=== PATIENT | male | born 1935 | race Caucasian/White ===

== ENCOUNTER 2020-09-03 14:35 | Inpatient (IN) ==
[2020-09-03] MEDS ORDERED: *HR* OxyCODONE/APAP 5/325 TABLET PO PRN (16:31)
[2020-09-03] MEDS ORDERED: NON-FORMULARY MEDICATION 1 EACH EACH (Alendronate Sodium [Fosamax] 70 MG) PO SCH (16:45)
[2020-09-03] MEDS ORDERED: NON-FORMULARY MEDICATION 1 EACH EACH (Vit A/Vit C/Vit E/Zinc/Copper [Preservision Areds Ta PO SCH (21:00)
[2020-09-03] MEDS: calcium polycarbophiL 625 MG TABLET PO SCH (21:58)
[2020-09-03] MEDS: Carbidopa/Levodopa 25/100 TABLET PO SCH (22:15)
[2020-09-03] MEDS: Artificial Tears SOLN 15 ML BOTTLE BOTH EYES SCH (22:16)
[2020-09-03] MEDS: Fluticasone Propionate Nasal 50 MCG/SPRAY BOTTLE NS SCH (22:16)
[2020-09-04 08:04] LABS: Basophils # 0.1 K/mcL (0.0-0.2); Basophils % 0.7 %; Eosinophils # 0.5 K/mcL (0.0-0.6); Eosinophils % 3.6 %; Hematocrit 33.2 % (37.5-50.1); Hemoglobin 10.7 g/dL (12.9-16.9); Immature Granulocytes % 1.4 % (0-4); Lymphocytes % 13.2 %; Mean Corpuscular HGB Conc 32.2 g/dL (31.6-35.5); Mean Corpuscular Hemoglobin 29.3 pg (28.0-33.3); Mean Platelet Volume 8.8 fL (9.4-12.4); Monocytes # 1.2 K/mcL (0.0-1.3); Monocytes % 9.4 %; Neutrophils # 9.5 K/mcL (1.6-8.9); Platelet Count 494 K/mcL (140-400); Red Blood Count 3.65 M/mcL (4.19-5.50); Red Cell Distribution Width 14.8 % (11.5-14.5); Segmented Neutrophils % 71.7 %; White Blood Count 13.2 K/mcL (4.3-11.1)
[2020-09-04 08:09] LABS: Lymphocytes # 1.7 K/mcL (0.6-4.6)
[2020-09-04 08:16] LABS: BUN/Creatinine Ratio 16 (6-26); Blood Urea Nitrogen 15 mg/dL (8-23); Calcium 8.5 mg/dL (8.6-10.3); Carbon Dioxide 30 mEq/L (23-29); Chloride 100 mEq/L (98-107); Glucose 109 mg/dL (70-105); Osmolality,Calculated 287 (280-300); Potassium 4.1 mEq/L (3.5-5.1); Sodium 138 mEq/L (136-145); eGFR For African Americans > 60 (> 60); eGFR For Non-African Americans > 60 (> 60)
[2020-09-04] MEDS: lisinopriL 10 MG TABLET PO SCH (09:37)
[2020-09-04] MEDS: Aspirin Enteric Coated 81 MG Tablet PO SCH (09:37)
[2020-09-04] MEDS: Artificial Tears SOLN 15 ML BOTTLE BOTH EYES SCH ×3 (09:37→20:55)
[2020-09-04] MEDS: Fluticasone Propionate Nasal 50 MCG/SPRAY BOTTLE NS SCH ×2 (09:37→20:53)
[2020-09-04] MEDS: Carbidopa/Levodopa 25/100 TABLET PO SCH ×3 (09:37→20:54)
[2020-09-04] MEDS: *HR* Rivaroxaban 10 MG TABLET PO SCH (09:38)
[2020-09-04] MEDS: Multivit/Ca/Min/Fe/FA 1 TAB TABLET PO SCH (09:38)
[2020-09-04] MEDS: calcium polycarbophiL 625 MG TABLET PO SCH (15:51)
[2020-09-05] MEDS: Artificial Tears SOLN 15 ML BOTTLE BOTH EYES SCH ×3 (09:07→20:01)
[2020-09-05] MEDS: lisinopriL 10 MG TABLET PO SCH (09:07)
[2020-09-05] MEDS: Aspirin Enteric Coated 81 MG Tablet PO SCH (09:07)
[2020-09-05] MEDS: Carbidopa/Levodopa 25/100 TABLET PO SCH ×3 (09:07→19:59)
[2020-09-05] MEDS: Multivit/Ca/Min/Fe/FA 1 TAB TABLET PO SCH (09:07)
[2020-09-05] MEDS: *HR* Rivaroxaban 10 MG TABLET PO SCH (09:07)
[2020-09-05] MEDS: Fluticasone Propionate Nasal 50 MCG/SPRAY BOTTLE NS SCH ×2 (09:08→20:01)
[2020-09-05] MEDS: calcium polycarbophiL 625 MG TABLET PO SCH (15:41)
[2020-09-06] MEDS: Artificial Tears SOLN 15 ML BOTTLE BOTH EYES SCH ×3 (08:51→20:08)
[2020-09-06] MEDS: Carbidopa/Levodopa 25/100 TABLET PO SCH ×3 (08:52→20:08)
[2020-09-06] MEDS: Multivit/Ca/Min/Fe/FA 1 TAB TABLET PO SCH (08:52)
[2020-09-06] MEDS: lisinopriL 10 MG TABLET PO SCH (08:52)
[2020-09-06] MEDS: Aspirin Enteric Coated 81 MG Tablet PO SCH (08:52)
[2020-09-06] MEDS: Fluticasone Propionate Nasal 50 MCG/SPRAY BOTTLE NS SCH ×2 (08:52→20:08)
[2020-09-06] MEDS: *HR* Rivaroxaban 10 MG TABLET PO SCH (08:52)
[2020-09-06] MEDS ORDERED: Albuterol 2.5 MG/3 ML NEBULIZER IH PRN (12:14)
[2020-09-07] MEDS: Sennosides/Docusate Sodium TABLET PO SCH ×2 (08:41→20:13)
[2020-09-07] MEDS: Carbidopa/Levodopa 25/100 TABLET PO SCH ×3 (08:42→20:12)
[2020-09-07] MEDS: lisinopriL 5 MG TABLET PO SCH (08:42)
[2020-09-07] MEDS: Aspirin Enteric Coated 81 MG Tablet PO SCH (08:42)
[2020-09-07] MEDS: calcium polycarbophiL 625 MG TABLET PO SCH (08:42)
[2020-09-07] MEDS: Fluticasone Propionate Nasal 50 MCG/SPRAY BOTTLE NS SCH ×2 (08:42→20:12)
[2020-09-07] MEDS: *HR* Rivaroxaban 10 MG TABLET PO SCH (08:42)
[2020-09-07] MEDS: Multivit/Ca/Min/Fe/FA 1 TAB TABLET PO SCH (08:42)
[2020-09-07] MEDS: Artificial Tears SOLN 15 ML BOTTLE BOTH EYES SCH ×3 (08:42→20:12)
[2020-09-08] MEDS: Artificial Tears SOLN 15 ML BOTTLE BOTH EYES SCH ×3 (09:12→20:48)
[2020-09-08] MEDS: Fluticasone Propionate Nasal 50 MCG/SPRAY BOTTLE NS SCH ×2 (09:12→20:49)
[2020-09-08] MEDS: Carbidopa/Levodopa 25/100 TABLET PO SCH ×3 (09:13→20:49)
[2020-09-08] MEDS: Aspirin Enteric Coated 81 MG Tablet PO SCH (09:13)
[2020-09-08] MEDS: *HR* Rivaroxaban 10 MG TABLET PO SCH (09:13)
[2020-09-08] MEDS: Multivit/Ca/Min/Fe/FA 1 TAB TABLET PO SCH (09:13)
[2020-09-08] MEDS: Sennosides/Docusate Sodium TABLET PO SCH ×2 (09:13→20:49)
[2020-09-08] MEDS: lisinopriL 5 MG TABLET PO SCH (09:13)
[2020-09-08] MEDS: calcium polycarbophiL 625 MG TABLET PO SCH (09:13)
[2020-09-09] MEDS: Artificial Tears SOLN 15 ML BOTTLE BOTH EYES SCH ×3 (08:43→20:46)
[2020-09-09] MEDS: Multivit/Ca/Min/Fe/FA 1 TAB TABLET PO SCH (08:44)
[2020-09-09] MEDS: Aspirin Enteric Coated 81 MG Tablet PO SCH (08:44)
[2020-09-09] MEDS: Fluticasone Propionate Nasal 50 MCG/SPRAY BOTTLE NS SCH ×2 (08:44→20:47)
[2020-09-09] MEDS: *HR* Rivaroxaban 10 MG TABLET PO SCH (08:44)
[2020-09-09] MEDS: Carbidopa/Levodopa 25/100 TABLET PO SCH ×3 (08:44→20:47)
[2020-09-09] MEDS: Sennosides/Docusate Sodium TABLET PO SCH ×2 (08:44→20:47)
[2020-09-09] MEDS: calcium polycarbophiL 625 MG TABLET PO SCH (08:44)
[2020-09-09] MEDS: lisinopriL 5 MG TABLET PO SCH (08:44)
[2020-09-10] MEDS: Multivit/Ca/Min/Fe/FA 1 TAB TABLET PO SCH (08:32)
[2020-09-10] MEDS: Sennosides/Docusate Sodium TABLET PO SCH ×2 (08:32→21:12)
[2020-09-10] MEDS: lisinopriL 5 MG TABLET PO SCH (08:32)
[2020-09-10] MEDS: calcium polycarbophiL 625 MG TABLET PO SCH (08:32)
[2020-09-10] MEDS: *HR* Rivaroxaban 10 MG TABLET PO SCH (08:32)
[2020-09-10] MEDS: Carbidopa/Levodopa 25/100 TABLET PO SCH ×3 (08:32→21:12)
[2020-09-10] MEDS: Fluticasone Propionate Nasal 50 MCG/SPRAY BOTTLE NS SCH ×2 (08:33→21:12)
[2020-09-10] MEDS: Artificial Tears SOLN 15 ML BOTTLE BOTH EYES SCH ×3 (08:33→21:12)
[2020-09-10] MEDS: Aspirin Enteric Coated 81 MG Tablet PO SCH (08:33)
[2020-09-10 08:39] LABS: Basophils # 0.1 K/mcL (0.0-0.2); Basophils % 0.5 %; Eosinophils # 0.4 K/mcL (0.0-0.6); Eosinophils % 2.9 %; Hematocrit 32.6 % (37.5-50.1); Hemoglobin 10.5 g/dL (12.9-16.9); Immature Granulocytes % 1.2 % (0-4); Lymphocytes # 1.5 K/mcL (0.6-4.6); Lymphocytes % 11.5 %; Mean Corpuscular HGB Conc 32.2 g/dL (31.6-35.5); Mean Corpuscular Hemoglobin 29.1 pg (28.0-33.3); Mean Corpuscular Volume 90.3 fL (83.0-100.0); Mean Platelet Volume 8.3 fL (9.4-12.4); Monocytes # 1.1 K/mcL (0.0-1.3); Monocytes % 8.7 %; Neutrophils # 9.6 K/mcL (1.6-8.9); Platelet Count 516 K/mcL (140-400); Red Blood Count 3.61 M/mcL (4.19-5.50); Red Cell Distribution Width 14.9 % (11.5-14.5); Segmented Neutrophils % 75.2 %; White Blood Count 12.8 K/mcL (4.3-11.1)
[2020-09-10 09:16] LABS: BUN/Creatinine Ratio 13 (6-26); Blood Urea Nitrogen 12 mg/dL (8-23); Calcium 8.4 mg/dL (8.6-10.3); Carbon Dioxide 30 mEq/L (23-29); Chloride 99 mEq/L (98-107); Glucose 116 mg/dL (70-105); Osmolality,Calculated 281 (280-300); Potassium 4.3 mEq/L (3.5-5.1); Sodium 135 mEq/L (136-145); eGFR For African Americans > 60 (> 60); eGFR For Non-African Americans > 60 (> 60)
[2020-09-11] MEDS: Artificial Tears SOLN 15 ML BOTTLE BOTH EYES SCH ×3 (09:05→20:57)
[2020-09-11] MEDS: Fluticasone Propionate Nasal 50 MCG/SPRAY BOTTLE NS SCH ×2 (09:06→20:56)
[2020-09-11] MEDS: Aspirin Enteric Coated 81 MG Tablet PO SCH (09:07)
[2020-09-11] MEDS: calcium polycarbophiL 625 MG TABLET PO SCH (09:07)
[2020-09-11] MEDS: lisinopriL 5 MG TABLET PO SCH (09:07)
[2020-09-11] MEDS: Sennosides/Docusate Sodium TABLET PO SCH ×2 (09:07→20:56)
[2020-09-11] MEDS: Carbidopa/Levodopa 25/100 TABLET PO SCH ×3 (09:08→20:56)
[2020-09-11] MEDS: Multivit/Ca/Min/Fe/FA 1 TAB TABLET PO SCH (09:08)
[2020-09-11] MEDS: *HR* Rivaroxaban 10 MG TABLET PO SCH (09:08)
[2020-09-12] MEDS: Sennosides/Docusate Sodium TABLET PO SCH ×2 (09:25→20:28)
[2020-09-12] MEDS: Artificial Tears SOLN 15 ML BOTTLE BOTH EYES SCH ×3 (09:25→22:02)
[2020-09-12] MEDS: *HR* Rivaroxaban 10 MG TABLET PO SCH (09:28)
[2020-09-12] MEDS: calcium polycarbophiL 625 MG TABLET PO SCH (09:28)
[2020-09-12] MEDS: lisinopriL 5 MG TABLET PO SCH (09:28)
[2020-09-12] MEDS: Multivit/Ca/Min/Fe/FA 1 TAB TABLET PO SCH (09:29)
[2020-09-12] MEDS: Carbidopa/Levodopa 25/100 TABLET PO SCH ×3 (09:29→20:27)
[2020-09-12] MEDS: Aspirin Enteric Coated 81 MG Tablet PO SCH (09:29)
[2020-09-12] MEDS: Fluticasone Propionate Nasal 50 MCG/SPRAY BOTTLE NS SCH ×2 (09:29→20:27)
[2020-09-13] MEDS: Artificial Tears SOLN 15 ML BOTTLE BOTH EYES SCH ×2 (08:15→17:08)
[2020-09-13] MEDS: Fluticasone Propionate Nasal 50 MCG/SPRAY BOTTLE NS SCH ×2 (08:15→19:36)
[2020-09-13] MEDS: calcium polycarbophiL 625 MG TABLET PO SCH (08:16)
[2020-09-13] MEDS: Multivit/Ca/Min/Fe/FA 1 TAB TABLET PO SCH (08:16)
[2020-09-13] MEDS: Aspirin Enteric Coated 81 MG Tablet PO SCH (08:16)
[2020-09-13] MEDS: Sennosides/Docusate Sodium TABLET PO SCH ×2 (08:16→19:36)
[2020-09-13] MEDS: lisinopriL 5 MG TABLET PO SCH (08:16)
[2020-09-13] MEDS: *HR* Rivaroxaban 10 MG TABLET PO SCH (08:16)
[2020-09-13] MEDS: Carbidopa/Levodopa 25/100 TABLET PO SCH ×3 (08:16→19:37)
[2020-09-13] MEDS ORDERED: Artificial Tears SOLN 15 ML BOTTLE BOTH EYES PRN (18:35)
[2020-09-14] MEDS: calcium polycarbophiL 625 MG TABLET PO SCH (07:57)
[2020-09-14] MEDS: Multivit/Ca/Min/Fe/FA 1 TAB TABLET PO SCH (07:57)
[2020-09-14] MEDS: Carbidopa/Levodopa 25/100 TABLET PO SCH ×3 (07:57→19:29)
[2020-09-14] MEDS: Aspirin Enteric Coated 81 MG Tablet PO SCH (07:57)
[2020-09-14] MEDS: *HR* Rivaroxaban 10 MG TABLET PO SCH (07:57)
[2020-09-14] MEDS: Sennosides/Docusate Sodium TABLET PO SCH ×2 (07:58→19:29)
[2020-09-14] MEDS: lisinopriL 5 MG TABLET PO SCH (07:58)
[2020-09-14] MEDS: Fluticasone Propionate Nasal 50 MCG/SPRAY BOTTLE NS SCH ×2 (07:58→19:29)
[2020-09-15] MEDS: *HR* Rivaroxaban 10 MG TABLET PO SCH (07:49)
[2020-09-15] MEDS: Carbidopa/Levodopa 25/100 TABLET PO SCH ×3 (07:49→19:41)
[2020-09-15] MEDS: Aspirin Enteric Coated 81 MG Tablet PO SCH (07:49)
[2020-09-15] MEDS: Multivit/Ca/Min/Fe/FA 1 TAB TABLET PO SCH (07:49)
[2020-09-15] MEDS: lisinopriL 5 MG TABLET PO SCH (07:49)
[2020-09-15] MEDS: calcium polycarbophiL 625 MG TABLET PO SCH (07:49)
[2020-09-15] MEDS: Fluticasone Propionate Nasal 50 MCG/SPRAY BOTTLE NS SCH ×2 (07:49→19:41)
[2020-09-15] MEDS: Sennosides/Docusate Sodium TABLET PO SCH ×2 (07:49→19:41)
[2020-09-16 06:09] LABS: Hematocrit 33.6 % (37.5-50.1); Hemoglobin 10.8 g/dL (12.9-16.9); Mean Corpuscular HGB Conc 32.1 g/dL (31.6-35.5); Mean Corpuscular Hemoglobin 29.5 pg (28.0-33.3); Mean Corpuscular Volume 91.8 fL (83.0-100.0); Mean Platelet Volume 8.6 fL (9.4-12.4); Platelet Count 499 K/mcL (140-400); Red Blood Count 3.66 M/mcL (4.19-5.50); Red Cell Distribution Width 15.2 % (11.5-14.5); Segmented Neutrophils % 68.6 %; White Blood Count 12.3 K/mcL (4.3-11.1)
[2020-09-16 06:10] LABS: Basophils # 0.1 K/mcL (0.0-0.2); Basophils % 0.6 %; Eosinophils # 0.4 K/mcL (0.0-0.6); Eosinophils % 3.3 %; Immature Granulocytes % 0.8 % (0-4); Lymphocytes # 2.1 K/mcL (0.6-4.6); Lymphocytes % 17.1 %; Monocytes # 1.2 K/mcL (0.0-1.3); Monocytes % 9.6 %
[2020-09-16 06:16] LABS: Neutrophils # 8.4 K/mcL (1.6-8.9)
[2020-09-16 06:27] LABS: BUN/Creatinine Ratio 13 (6-26); Blood Urea Nitrogen 12 mg/dL (8-23); Calcium 8.4 mg/dL (8.6-10.3); Carbon Dioxide 28 mEq/L (23-29); Chloride 101 mEq/L (98-107); Glucose 111 mg/dL (70-105); Osmolality,Calculated 286 (280-300); Potassium 4.3 mEq/L (3.5-5.1); Sodium 138 mEq/L (136-145); eGFR For African Americans > 60 (> 60); eGFR For Non-African Americans > 60 (> 60)
[2020-09-16] MEDS: Carbidopa/Levodopa 25/100 TABLET PO SCH ×3 (08:08→20:31)
[2020-09-16] MEDS: Aspirin Enteric Coated 81 MG Tablet PO SCH (08:08)
[2020-09-16] MEDS: Sennosides/Docusate Sodium TABLET PO SCH ×2 (08:08→20:30)
[2020-09-16] MEDS: Multivit/Ca/Min/Fe/FA 1 TAB TABLET PO SCH (08:09)
[2020-09-16] MEDS: lisinopriL 5 MG TABLET PO SCH (08:09)
[2020-09-16] MEDS: *HR* Rivaroxaban 10 MG TABLET PO SCH (08:09)
[2020-09-16] MEDS: calcium polycarbophiL 625 MG TABLET PO SCH (08:09)
[2020-09-16] MEDS: Fluticasone Propionate Nasal 50 MCG/SPRAY BOTTLE NS SCH ×2 (08:09→20:36)
[2020-09-17] MEDS: Carbidopa/Levodopa 25/100 TABLET PO SCH ×3 (08:29→19:31)
[2020-09-17] MEDS: calcium polycarbophiL 625 MG TABLET PO SCH (08:29)
[2020-09-17] MEDS: lisinopriL 5 MG TABLET PO SCH (08:29)
[2020-09-17] MEDS: Multivit/Ca/Min/Fe/FA 1 TAB TABLET PO SCH (08:30)
[2020-09-17] MEDS: Fluticasone Propionate Nasal 50 MCG/SPRAY BOTTLE NS SCH ×2 (08:30→19:32)
[2020-09-17] MEDS: *HR* Rivaroxaban 10 MG TABLET PO SCH (08:30)
[2020-09-17] MEDS: Aspirin Enteric Coated 81 MG Tablet PO SCH (08:30)
[2020-09-17] MEDS: Sennosides/Docusate Sodium TABLET PO SCH ×2 (08:30→19:32)
[2020-09-18] MEDS: Aspirin Enteric Coated 81 MG Tablet PO SCH (08:30)
[2020-09-18] MEDS: *HR* Rivaroxaban 10 MG TABLET PO SCH (08:30)
[2020-09-18] MEDS: calcium polycarbophiL 625 MG TABLET PO SCH (08:30)
[2020-09-18] MEDS: lisinopriL 5 MG TABLET PO SCH (08:30)
[2020-09-18] MEDS: Sennosides/Docusate Sodium TABLET PO SCH ×2 (08:30→20:33)
[2020-09-18] MEDS: Multivit/Ca/Min/Fe/FA 1 TAB TABLET PO SCH (08:30)
[2020-09-18] MEDS: Carbidopa/Levodopa 25/100 TABLET PO SCH ×3 (08:30→20:33)
[2020-09-18] MEDS: Fluticasone Propionate Nasal 50 MCG/SPRAY BOTTLE NS SCH ×2 (08:31→20:33)
[2020-09-19] MEDS: Aspirin Enteric Coated 81 MG Tablet PO SCH (08:39)
[2020-09-19] MEDS: Carbidopa/Levodopa 25/100 TABLET PO SCH (08:39)
[2020-09-19] MEDS: Sennosides/Docusate Sodium TABLET PO SCH (08:39)
[2020-09-19] MEDS: calcium polycarbophiL 625 MG TABLET PO SCH (08:39)
[2020-09-19] MEDS: lisinopriL 5 MG TABLET PO SCH (08:39)
[2020-09-19] MEDS: Fluticasone Propionate Nasal 50 MCG/SPRAY BOTTLE NS SCH (08:39)
[2020-09-19] MEDS: Multivit/Ca/Min/Fe/FA 1 TAB TABLET PO SCH (08:40)
[2020-09-19 08:58] VITALS: BP 109/72
[2020-09-19] MEDS: *HR* Rivaroxaban 10 MG TABLET PO SCH (09:10)
== END 2020-09-19 12:40 | disposition home health service (06) | DRG 560 ==
LOC: INPPIK 18:36
PROVIDERS: ADMIT Family Medicine; ATTEND Family Medicine